=== PATIENT | male | born 1985 | race Caucasian/White ===

== ENCOUNTER 2017-02-10 23:27 | Emergency (ER) | payer OTHER ==
[~2017-02-10] VITALS: Ht 170.2 cm; Wt 62.7 kg
[~2017-02-10 23:27] MED LIST: IBUPROFEN600 MG PO; OMEPRAZOLE20 MG PO; PAXIL20 MG PO; PROMETHAZINE HC25 M1 PO; RANITIDINE HCL75 MG PO; ULTRAM50 MG PO
[2017-02-10 23:57] LABS: HEMATOCRIT 44.1 % (38.0-50.0); MCH 30.5 PG (29.0-34.0); MCHC 34.5 G/DL (30.0-36.0); MCV 88.6 FL (86-99); MEAN PLAT.VOLUME 10.3 uM^3 (9.0-12.4); PLATELET COUNT 314 K/uL (156-360); RBC DIS.WIDTH-CV 12.6 % (11.8-14.6); RED BLOOD COUNT 4.98 M/uL (4.00-5.50); WHITE BLOOD COUNT 9.6 K/uL (4.1-10.2)
[2017-02-11 00:06] LABS: CHLORIDE 103 mEq/L (99-109); POTASSIUM 3.5 mEq/L (3.7-5.4); SODIUM 138 mEq/L (136-147)
[2017-02-11 00:08] LABS: GLUCOSE 134 mg/dL (70-99)
[2017-02-11 00:10] LABS: ANION GAP 15 MEQ/L (2-14); TOTAL BILIRUBIN 1.1 mg/dL (0.0-1.0)
[2017-02-11 00:12] LABS: ALKALINE PHOSPHATASE 63 IU/L (3-129); GFR ESTIMATE (CALCULATED) > 59 mL/min/
[2017-02-11 00:13] LABS: UREA NITROGEN (BUN) 11 mg/dL (9-23)
[2017-02-11 00:52] LABS: CREATINE KINASE 57 IU/L (1-294)
[2017-02-11 01:33] LABS: ADD MIUA? YES; BILIRUBIN NEGATIVE; BLOOD NEGATIVE; COLOR YELLOW ((YELLOW)); GLUCOSE (STRIP) NEGATIVE; KETONES 20; LEUKOCYTES NEGATIVE; NITRITE NEGATIVE; PROTEIN (STRIP) 30; SPECIFIC GRAVITY 1.017 (1.000-1.030)
[2017-02-11 01:36] LABS: BACTERIA NONE SEEN /HPF; EPITHELIAL CELLS RARE /HPF; MUCUS 1+ /LPF; RED BLOOD CELLS 0-5 /HPF (0-5); UCUL ADDED? NO; WHITE BLOOD CELLS 0-5 /HPF (0-5)
[2017-02-11] MEDS ORDERED: ZOFRAN ODT4 MG PO (01:45)
[2017-02-11 01:56] VITALS: BP 125/75
== END 2017-02-11 01:57 | disposition home or self-care (01) ==
LOC: RME 23:27 → EME 23:27 → RME 02-11 01:57
DX: R11.2 Nausea with vomiting, unspecified (principal); R19.7 Diarrhea, unspecified
CPT/HCPCS: 80053; 81003; 82550; 85025; 85027; 99281; 99284; J1885; J2405; J7030

== ENCOUNTER 2017-10-25 20:41 | Emergency (ER) | payer OTHER ==
[~2017-10-25] VITALS: Ht 170.2 cm; Wt 61.3 kg
[~2017-10-25 20:41] MED LIST changes: +ZOFRAN ODT4 MG PO
[2017-10-25 21:04] LABS: HEMATOCRIT 43.8 % (38.0-50.0); MCH 31.6 PG (29.0-34.0); MCHC 36.5 G/DL (30.0-36.0); MCV 86.4 FL (86-99); PLATELET COUNT 266 K/uL (156-360); RBC DIS.WIDTH-CV 12.3 % (11.8-14.6); RBC DIS.WIDTH-SD 38.8 % (39-53); RED BLOOD COUNT 5.07 M/uL (4.00-5.50); WHITE BLOOD COUNT 10.3 K/uL (4.1-10.2)
[2017-10-25 21:14] LABS: ALBUMIN 4.4 g/dL (3.2-4.8); CHLORIDE 99 mEq/L (99-109); POTASSIUM 3.3 mEq/L (3.7-5.4); SODIUM 133 mEq/L (136-147)
[2017-10-25 21:16] LABS: GLUCOSE 120 mg/dL (70-99)
[2017-10-25 21:17] LABS: TOTAL PROTEIN 7.7 g/dL (6.4-8.3)
[2017-10-25 21:18] LABS: TOTAL BILIRUBIN 1.3 mg/dL (0.0-1.0)
[2017-10-25 21:20] LABS: ALKALINE PHOSPHATASE 58 IU/L (3-129); GFR ESTIMATE (CALCULATED) > 59 mL/min/ (58.99-99999)
[2017-10-25 21:21] LABS: UREA NITROGEN (BUN) 13 mg/dL (9-23)
[2017-10-25 21:22] LABS: AST (GOT) 16 IU/L (2-34)
[2017-10-25 21:23] LABS: ALT (GPT) 14 IU/L (3-49)
[2017-10-25 23:58] LABS: APPEARANCE CLEAR ((CLEAR)); BILIRUBIN NEGATIVE; BLOOD NEGATIVE; COLOR YELLOW ((YELLOW)); GLUCOSE (STRIP) NEGATIVE; KETONES 20; LEUKOCYTES NEGATIVE; NITRITE NEGATIVE; PROTEIN (STRIP) NEGATIVE; SPECIFIC GRAVITY 1.008 (1.000-1.030); UCUL ADDED? NO; UROBILINOGEN 0.2 MG/DL (0.2-1.0)
[2017-10-26] MEDS ORDERED: ZOFRAN ODT4 MG PO (00:06)
[2017-10-26 00:54] VITALS: BP 113/71
== END 2017-10-26 00:56 | disposition left against medical advice (07) ==
LOC: EME 20:41
PROVIDERS: Nurse Practitioner Family
DX: B34.9 Viral infection, unspecified (principal); F41.9 Anxiety disorder, unspecified; Z88.8 Allergy status to other drugs, medicaments and biological substances
CPT/HCPCS: 80053; 81003; 85027; 87502; 99281; 99285; J1885; J2405; J7030

== ENCOUNTER → 2018-04-12 | Outpatient (CLI) | payer SELFPAY | END | disposition home or self-care (01) | LOC: RAD 16:23 | DX: M54.9 Dorsalgia, unspecified (principal) | CPT/HCPCS: 72080 ==